=== PATIENT | male | born 1990 | race Two or more races ===

== ENCOUNTER 2017-10-07 12:41 | Emergency (ER) | payer OTHER ==
[2017-10-07 12:46] VITALS: Ht 175.3 cm
[2017-10-07 14:51] VITALS: BP 148/95
== END 2017-10-07 14:51 | disposition home or self-care (01) ==
LOC: ED 12:41
DX: S62.663A Nondisplaced fracture of distal phalanx of left middle finger, initial encounter for closed fracture (principal); W18.30XA Fall on same level, unspecified, initial encounter; Y93.51 Activity, roller skating (inline) and skateboarding; Y92.89 Other specified places as the place of occurrence of the external cause; Y99.8 Other external cause status
CPT/HCPCS: A4570

== ENCOUNTER 2020-02-29 19:54 | Emergency (ER) | payer OTHER ==
[~2020-02-29] VITALS: Ht 177.8 cm; Wt 79.4 kg
[2020-02-29 20:19] VITALS: BP 145/93; Ht 177.8 cm; Wt 79.4 kg
== END 2020-02-29 20:44 ==
LOC: ED 19:54
DX: Z02.89 Encounter for other administrative examinations (principal)